=== PATIENT | male | born 1960 ===

== ENCOUNTER 2019-07-03 00:13 | Emergency (ER) | payer BC ==
--- NOTE | 2019-07-03 00:31 | EDM.PDOC ---
ED HPI GENERAL MEDICAL PROBLEM - General Chief Complaint: Lower Extremity Injury/Pain Stated Complaint: DEFORMED RIGHT ANKLE Time Seen by Provider: 07/03/19 00:15 Source of Information: Reports: Patient History Limitations: Reports: No Limitations - History of Present Illness INITIAL COMMENTS - FREE TEXT/NARRATIVE: According to patient [place] town. He was walking out in the dark to urinate and twisted his left ankle over a rock and hurt his left ankle. He has not been able to walk or bear weight since the twist. Also his ankle has been swollen up since then. No other complaints. Onset: Today Onset Date: 07/03/19 Onset Time: 00:00 (Just prior to arrival) Location: Reports: Lower Extremity, Left Quality: Reports: Ache Severity: Moderate Improves with: Reports: Cold Therapy, Rest Worsens with: Reports: Movement Associated Symptoms: Denies: Confusion, Chest Pain, Cough, Diaphoresis, Fever/ Chills, Headaches, Nausea/Vomiting, Rash, Seizure, Shortness of Breath, Syncope , Weakness LEFT ANKLE Pain Score (Numeric/FACES): 0 - Related Data Allergies Allergy/AdvReac Type Severity Reaction Status Date / Time No Known Allergies Allergy Verified 07/03/19 00:16 Home Meds: Home Meds NK [No Known Home Meds] 07/03/19 [History] Review of Systems - Review of Systems Review Of Systems: See Below Constitutional: Denies: Chills, Fever Eyes: Denies: Tunnel Vision Ears: Denies: Dizziness, Tinnitus Nose: Denies: Congestion, Epistaxis Mouth/Throat: Denies: Bleeding, Throat Swelling, Difficulty Swallowing Respiratory: Denies: Shortness of Breath, Cough Cardiovascular: Denies: Chest Pain, Irregular Heart Rate GI/Abdominal: Denies: Abdominal Pain, Constipation Musculoskeletal: Reports: Joint Pain, Joint Swelling Skin: Reports: Bruising. Denies: Pruritis, Rash, Erythema ED EXAM, GENERAL - Physical Exam Exam: See Below Exam Limited By: No Limitations General Appearance: Alert, WD/WN, Mild Distress, Other (strong smell of alcohol. ) Eye Exam: Bilateral Eye: EOMI, PERRL Ears: Normal External Exam, Normal Canal, Hearing Grossly Normal, Normal TMs Ear Exam: Bilateral Ear: Auricle Normal, Canal Normal, TM normal Nose: Normal Inspection, Normal Mucosa, No Blood Throat/Mouth: Normal Inspection, Normal Lips, Normal Teeth, Normal Gums, Normal Oropharynx, Normal Voice, No Airway Compromise Head: Atraumatic, Normocephalic Neck: Normal Inspection, Supple, Non-Tender, Full Range of Motion Respiratory/Chest: No Respiratory Distress, Lungs Clear, Normal Breath Sounds, No Accessory Muscle Use, Chest Non-Tender Cardiovascular: Normal Peripheral Pulses, Regular Rate, Rhythm, No Edema, No Gallop, No JVD, No Murmur, No Rub Extremities: Normal Capillary Refill, Limited Range of Motion (left ankle: there is swelling all around the ankle. There is more prominenece of the medial maleolus.Crepitus felt over medail malleolus. No open wound. limited painful ROM.), Other Course - Vital Signs Text/Narrative:: Pt did get left ankle X-ray, which does show displaced fracture of the posterior distal tibia with the talus displaced with the fragment posteriorly along with minimally displaced fracture of the distal tibia. He does have good dorsalis pedis and posterior tibia arteries. Good Capillary refill. I did discuss patient with Dr. Dockery, orthopedist video production assistant and discuss patient with him. Also X-ray report discussed with him. This is unstable fracture, The fracture was reduced and was placed in short leg splint.Pt was advised elevation of the extremity. also advised not to walk on the left lower extremity. He should followup with his orthopedist on Thursday for possible surgical fixation of the joint. Motrin 800mg 3 times daily. Non-weight bearing crutch walking. Also discussed the capillary refill monitoring for neurovascular compromise. Advised to return to emergency room if the toes turn purple, or if he develops tangling or numbness in the toes. Apparently patient is having trouble using the crutches, in the emergency room and walking on his leg splint. I did repeat the X-ray of the left foot. The posterior tibia fragment does appear reduced in place. I have stressed to patient that he should use crutches and non-weight bearing. Should followup with Orthopedist on Thursday. Last Recorded V/S: Last Vital Signs Temp 97.8 F 07/03/19 00:16 Pulse 89 07/03/19 00:16 Resp 18 07/03/19 00:16 BP 142/72 H 07/03/19 00:16 Pulse Ox 96 07/03/19 00:16 - Orders/Labs/Meds Orders: Active Orders 24 hr Category Date Time Status Ankle 2V Lt [CR] Stat Exams 07/03/19 01:55 Ordered Ankle Min 3V Lt [CR] Stat Exams 07/03/19 00:24 Taken Departure - Departure Time of Disposition: 02:10 Disposition: Home, Self-Care 01 Condition: Fair Clinical Impression: Fracture, ankle closed, bimalleolar - Discharge Information *PRESCRIPTION DRUG MONITORING PROGRAM REVIEWED*: Not Applicable *COPY OF PRESCRIPTION DRUG MONITORING REPORT IN PATIENT CARLOS: Not Applicable Instructions: Crutch Use, Adult, [id number], RICE Therapy for Routine Care of Injuries, [id number] Forms: ED Department Discharge Additional Instructions: Use ice to the area several times a day for about 20 minutes at a time. NO weight bearing until you are seen by the orthopedic provider, use your crutches. Place two pillows under your ankle at night and a pillow under your knee. The swelling will continue, but elevating the leg will help with the swelling. Make sure to check the capillary refill in the toes to make sure the circulation stays adequate. (this was when he pinched the tow, it turned white then released and it turned pink again. Go to see an orthopedics on Thursday. Pt did get left ankle X-ray, which does show displaced fracture of the posterior distal tibia with the talus displaced with the fragment posteriorly along with minimally displaced fracture of the distal tibia. He does have good dorsalis pedis and posterior tibia arteries. Good Capillary refill. I did discuss patient with Dr. Dockery, orthopedist video production assistant and discuss patient with him. Also X-ray report discussed with him. This is unstable fracture, The fracture was reduced and was placed in short leg splint.Pt was advised elevation of the extremity. also advised not to walk on the left lower extremity. He should followup with his orthopedist on Thursday for possible surgical fixation of the joint. Motrin 800mg 3 times daily. Non-weight bearing crutch walking. Also discussed the capillary refill monitoring for neurovascular compromise. Advised to return to emergency room if the toes turn purple, or if he develops tangling or numbness in the toes. Apparently patient is having trouble using the crutches, in the emergency room and walking on his leg splint. I did repeat the X-ray of the left foot. The posterior tibia fragment does appear reduced in place. I have stressed to patient that he should use crutches and non-weight bearing. Should followup with Orthopedist on Thursday. - Problem List & Annotations (1) Fracture, ankle closed, bimalleolar SNOMED Code(s): 95251120 Code(s): S82.843A - DISPLACED BIMALLEOLAR FRACTURE OF UNSP LOWER LEG, INIT Status: Acute Current Visit: Yes - Problem List Review Problem List Initiated/Reviewed/Updated: Yes - My Orders Last 24 Hours: My Active Orders 07/03/19 00:24 Ankle Min 3V Lt [CR] Stat 07/03/19 01:55 Ankle 2V Lt [CR] Stat - Assessment/Plan Last 24 Hours: My Active Orders 07/03/19 00:24 Ankle Min 3V Lt [CR] Stat 07/03/19 01:55 Ankle 2V Lt [CR] Stat Assessment:: Left ankle unstable fracture Plan: Pt did get left ankle X-ray, which does show displaced fracture of the posterior distal tibia with the talus displaced with the fragment posteriorly along with minimally displaced fracture of the distal tibia. He does have good dorsalis pedis and posterior tibia arteries. Good Capillary refill. I did discuss patient with Dr. Dockery, orthopedist video production assistant and discuss patient with him. Also X-ray report discussed with him. This is unstable fracture, The fracture was reduced and was placed in short leg splint.Pt was advised elevation of the extremity. also advised not to walk on the left lower extremity. He should followup with his orthopedist on Thursday for possible surgical fixation of the joint. Motrin 800mg 3 times daily. Non-weight bearing crutch walking. Also discussed the capillary refill monitoring for neurovascular compromise. Advised to return to emergency room if the toes turn purple, or if he develops tangling or numbness in the toes. Apparently patient is having trouble using the crutches, in the emergency room and walking on his leg splint. I did repeat the X-ray of the left foot. The posterior tibia fragment does appear reduced in place. I have stressed to patient that he should use crutches and non-weight bearing. Should followup with Orthopedist on Thursday.
--- NOTE | 2019-07-03 10:34 | CR ---
Date of Service: 07/03/19 Clinical Data: possible ankle fracture, twisted his left ankle. LEFT ANKLE: There is a trimalleolar fracture dislocation of the ankle joint. There is a comminuted displaced vertical fracture through the posterior malleolus of the distal tibia. The talus is dislocated posteriorly with respect to the distal tibia. There is a displaced oblique fracture through the distal fibular metaphysis. There is also a mild displaced oblique fracture through the medial malleolus of the distal tibia. The gap between the distal fibula and tibia appears widened consistent with an intraosseous ligament injury. No acute acute abnormalities. [id number] [facility]
--- NOTE | 2019-07-03 10:37 | CR ---
Date of Service: 07/03/19 Clinical Data: post splint placement LEFT ANKLE: Views with a posterior splint in place were performed. The trimalleolar fracture dislocation is again seen. No change in alignment or position from the prior study. No new abnormalities. [id number] [facility]
== END 2019-07-03 02:10 | disposition home or self-care (01) ==
LOC: LB.ED 00:13
DX: S82.842A Displaced bimalleolar fracture of left lower leg, initial encounter for closed fracture (principal); X50.1XXA Overexertion from prolonged static or awkward postures, initial encounter
CPT/HCPCS: 27810; 73600-LT; 73610-LT; 99283-25